=== PATIENT | female | born 1975 | race Caucasian/White ===

== ENCOUNTER 2017-12-27 12:24 | Emergency (ER) | payer MEDICARE, OTHER ==
[~2017-12-27] VITALS: Ht 157.5 cm; Wt 100.0 kg
[2017-12-27 12:43] VITALS: BP 133/85
--- NOTE | 2017-12-27 12:45 | NUR ---
PT AMBULATES TO THE RESTROOM FOR URINE SAMPLE
--- NOTE | 2017-12-27 12:50 | NUR ---
PATIENT PRESENTS TO ED WITH C/O OF LEFT LOWER QUADRANT ABD PAIN THAT RADIATES TO THE BACK . PT STATES THE PAIN STARTED THIS MORNING. PATIENT ALSO REPORTS OF VOMITING . SKIN IS PINK/WARM/DRY; AAOX4 WITH EVEN AND STEADY GAIT; LUNGS CLEAR BL; HR EVEN AND REGULAR; PT DENIES ANY FEVER, CP, SOB, OR COUGH AT THIS TIME; PATIENT STATES PAIN OF 10/10 AT THIS TIME; VSS; PATIENT POSITIONED FOR COMFORT; HOB ELEVATED; BEDRAILS UP X2; BED DOWN. ER MD MADE AWARE OF PT STATUS.
--- NOTE | 2017-12-27 12:51 | NUR ---
PT AMBULATES TO BED 4
[2017-12-27 13:16] LABS: BASOPHILS # (AUTO) 0.5 K/uL (0.00-0.22); BASOPHILS % (AUTO) 3.9 % (0.0-2.0); EOSINOPHILS % (AUTO) 0.4 % (0.0-4.0); HEMATOCRIT 40.3 % (36-48); HEMOGLOBIN 13.2 g/dL (12.0-16.0); LYMPHOCYTES # (AUTO) 2.4 K/uL (2.5-16.5); LYMPHOCYTES % (AUTO) 19.9 % (20.5-51.1); MEAN CORPUSCULAR HEMOGLOBIN 28 pg (27-31); MEAN CORPUSCULAR HGB CONC 33 g/dL (33-37); MEAN CORPUSCULAR VOLUME 85 fL (80-94); MONOCYTES # (AUTO) 1.3 K/uL (0.8-1.0); MONOCYTES % (AUTO) 11.4 % (1.7-9.3); NEUTROPHILS # (AUTO) 7.6 K/uL (1.8-7.7); NEUTROPHILS % (AUTO) 64.4 % (42.2-75.2); PLATELET COUNT (AUTO) 251 K/uL (140-450); RED BLOOD CELL COUNT(AUTO) 4.73 MIL/uL (4.20-5.40); RED CELL DISTRIBUTION WIDTH 13.7 % (11.6-13.7); WHITE BLOOD COUNT (AUTO) 11.8 K/uL (4.8-10.8)
[2017-12-27] MEDS: KETOROLAC 30 MG/ML VIAL IM ONE (13:17)
[2017-12-27 13:25] LABS: ANION GAP 16.3 (8-16); CARBON DIOXIDE 24.1 mmol/L (21-32); CREATININE 0.9 mg/dL (0.6-1.3); POTASSIUM 3.4 mmol/L (3.5-5.1)
[2017-12-27 13:35] LABS: ALBUMIN 3.8 g/dL (3.4-5.0); TOTAL BILIRUBIN 1.6 mg/dL (0.0-1.0)
[2017-12-27 14:30] LABS: APPEARANCE,URINE CLEAR (CLEAR); BILIRUBIN,URINE 2+ (NEGATIVE); BLOOD, URINE 2+ (NEGATIVE); LEUKOCYTE ESTERASE ,URINE NEGATIVE (NEGATIVE); NITRITE, URINE NEGATIVE (NEGATIVE); UGLUCOSE NEGATIVE (NEGATIVE)
[2017-12-27 14:33] LABS: BARBITURATE, URINE POS. ng/ml (NEG <=200); BENZODIAZEPINE, URINE NEG. ng/mL (NEG <=200); CANNABINOID, URINE POS. ng/mL (NEG <=50); COCAINE, URINE POS. ng/mL (NEG <=300); OPIATE, URINE NEG. ng/mL (NEG <=2000); PHENCYCLIDINE SCREEN,URINE NEG. ng/mL (NEG <=25)
[2017-12-27 14:36] LABS: COLOR,URINE AMBER (YELLOW)
[2017-12-27] MEDS: LEVOFLOXACIN 750 MG TAB PO ONE (14:43)
[2017-12-27 14:53] LABS: RBC,URINE 3-10 (FEW) /HPF (0-5); WBC,URINE NONE SEEN /HPF (0-5)
[2017-12-27 15:45] VITALS: BP 148/88
--- NOTE | 2017-12-27 15:46 | NUR ---
Patient discharged with v/s stable. Written and verbal after care instructions given and explained. Patient alert, oriented and verbalized understanding of instructions. Ambulatory with steady gait. All questions addressed prior to discharge. ID band removed. Patient advised to follow up with PMD. Rx of LEVAQUIN given. Patient educated on indication of medication including possible reaction and side effects. Opportunity to ask questions provided and answered.
== END 2017-12-27 15:46 | disposition home or self-care (01) ==
LOC: MED 12:24
DX: J18.9 Pneumonia, unspecified organism (principal); N83.209 Unspecified ovarian cyst, unspecified side; F12.90 Cannabis use, unspecified, uncomplicated; Z71.6 Tobacco abuse counseling
CPT/HCPCS: 36415; 74176; 76856; 80053; 80305; 81001; 81025; 85025; 96372; 99285; J1885; Q0092

== ENCOUNTER 2021-05-01 20:30 | Emergency (ER) | payer OTHER ==
[~2021-05-01] VITALS: Ht 160 cm; Wt 90.7 kg
[2021-05-01 20:35] VITALS: BP 134/90
--- NOTE | 2021-05-01 20:35 | NUR ---
TO BED AMBULATORY
--- NOTE | 2021-05-01 20:50 | NUR ---
EKG PERFORMED AT BEDSIDE. EKG READS SINUS TACHYCARDIA @ 106
--- NOTE | 2021-05-01 20:59 | NUR ---
ERMD at bedside for medical evaluation.
[2021-05-01 21:21] LABS: BASOPHILS # (AUTO) 0.1 K/uL (0.00-0.22); BASOPHILS % (AUTO) 1.5 % (0.0-2.0); EOSINOPHILS # (AUTO) 0.2 K/uL (0-0.4); EOSINOPHILS % (AUTO) 2.8 % (0.0-4.0); HEMATOCRIT 40.4 % (36-48); HEMOGLOBIN 13.3 g/dL (12.0-16.0); LYMPHOCYTES # (AUTO) 2.6 K/uL (2.5-16.5); LYMPHOCYTES % (AUTO) 41.4 % (20.5-51.1); MEAN CORPUSCULAR HEMOGLOBIN 29 pg (27-31); MEAN CORPUSCULAR HGB CONC 33 g/dL (33-37); MEAN CORPUSCULAR VOLUME 87.2 fL (80-94); MONOCYTES # (AUTO) 0.8 K/uL (0.8-1.0); MONOCYTES % (AUTO) 13.1 % (1.7-9.3); NEUTROPHILS # (AUTO) 2.6 K/uL (1.8-7.7); NEUTROPHILS % (AUTO) 41.2 % (42.2-75.2); PLATELET COUNT (AUTO) 270 K/uL (140-450); RED BLOOD CELL COUNT(AUTO) 4.63 MIL/uL (4.20-5.40); RED CELL DISTRIBUTION WIDTH 14.1 % (11.6-13.7); WHITE BLOOD COUNT (AUTO) 6.2 K/uL (4.8-10.8)
[2021-05-01 21:34] LABS: ANION GAP 16.4 (8-16); CARBON DIOXIDE 26.9 mmol/L (21-32); CREATININE 0.9 mg/dL (0.6-1.3); POTASSIUM 4.3 mmol/L (3.5-5.1)
--- NOTE | 2021-05-01 21:37 | NUR ---
see complete assessment.
--- NOTE | 2021-05-01 21:38 | NUR ---
taken to CT via w/c
--- NOTE | 2021-05-01 22:10 | NUR ---
d/c with VSS. d/c education given. opportunity to ask questions given and answered no rx given. encouraged pt to follow up with PMD. given a copy of CT results.
== END 2021-05-01 22:10 | disposition home or self-care (01) ==
LOC: MED 20:30
DX: R55 Syncope and collapse (principal); R07.89 Other chest pain; F17.200 Nicotine dependence, unspecified, uncomplicated; Z98.890 Other specified postprocedural states
CPT/HCPCS: 36415; 70450; 80048; 81002; 81025; 85025; 93005; 99285

== ENCOUNTER 2022-05-14 18:29 | Emergency (ER) | payer OTHER ==
[~2022-05-14] VITALS: Ht 160 cm; Wt 90.7 kg
[2022-05-14 18:37] VITALS: BP 151/86
--- NOTE | 2022-05-14 19:01 | NUR ---
CALLED PT NO ANSWER/ LEFT WITHOUT BEING SEEN
== END 2022-05-14 19:01 | disposition left against medical advice (07) ==
LOC: MED 18:29
DX: R53.1 Weakness (principal); M79.10 Myalgia, unspecified site; Z53.21 Procedure and treatment not carried out due to patient leaving prior to being seen by health care provider

== ENCOUNTER 2022-10-02 22:51 | Emergency (ER) | payer OTHER ==
[~2022-10-02] VITALS: Ht 160 cm; Wt 99.8 kg
[2022-10-02 23:41] VITALS: BP 123/74
--- NOTE | 2022-10-02 23:45 | NUR ---
TO LOBBY A/W BED AMBULATORY
--- NOTE | 2022-10-02 23:59 | NUR ---
PT TAKEN TO RADIOLOGY
--- NOTE | 2022-10-03 02:06 | NUR ---
PT AMBULATED TO BED #1
--- NOTE | 2022-10-03 02:32 | NUR ---
Dr. Alarcon examining patient.
--- NOTE | 2022-10-03 02:35 | NUR ---
RECEIVED PT AT THIS TIME WITH C/O LEFT SHOULDER PAIN, NO TRAUMA NOR INJURY, FOR 4DAYS. PT IS MOANING LOUDLY AND IS WRESTLESS.
[2022-10-03] MEDS ORDERED: MORPHINE SULFATE 10 MG/ML VIAL IM ONE (02:40)
--- NOTE | 2022-10-03 03:00 | NUR ---
US AT BEDSIDE
[2022-10-03] MEDS ORDERED: IBUP-2213 PO (03:55)
[2022-10-03] MEDS ORDERED: CYCL-711 PO (03:55)
[2022-10-03] MEDS ORDERED: LORazepam 2 MG/ML VIAL IM ONE (03:55)
[2022-10-03] MEDS ORDERED: ACET-10509 PO (03:55)
[2022-10-03 05:25] VITALS: BP 124/68
--- NOTE | 2022-10-03 05:25 | NUR ---
Patient discharged with v/s stable. Written and verbal after care instructions given and explained. Patient alert, oriented and verbalized understanding of instructions. Ambulatory with steady gait. All questions addressed prior to discharge. ID band removed. Patient advised to follow up with PMD. Rx of FLEXERIL given. Patient educated on indication of medication including possible reaction and side effects. Opportunity to ask questions provided and answered.
== END 2022-10-03 05:25 | disposition home or self-care (01) ==
LOC: MED 22:51
DX: M62.838 Other muscle spasm (principal); M25.512 Pain in left shoulder; J44.9 Chronic obstructive pulmonary disease, unspecified; Z79.899 Other long term (current) drug therapy
CPT/HCPCS: 73030; 93971; 96372; 99284; J2060; J2270; Q0092